=== PATIENT | female | born 1965 | race Two or more races ===

== ENCOUNTER 2020-09-13 20:41 | Emergency (ER) | payer OTHER ==
[~2020-09-13] VITALS: Ht 167.6 cm; Wt 70.3 kg
[2020-09-14] MEDS ORDERED: MORPHINE SULFATE INJECTION 2 MG/ML SYRG IM ONE
[2020-09-14] MEDS ORDERED: ONDANSETRON ODT 4 MG TAB PO ONE
[2020-09-14 01:10] VITALS: BP 141/87
== END 2020-09-14 01:50 | disposition home or self-care (01) ==
LOC: ER 20:41
DX: S52.532A Colles' fracture of left radius, initial encounter for closed fracture (principal); E78.00 Pure hypercholesterolemia, unspecified; W19.XXXA Unspecified fall, initial encounter; Y93.89 Activity, other specified; Y92.89 Other specified places as the place of occurrence of the external cause; Y99.8 Other external cause status
CPT/HCPCS: 29125; 73110; 73130; 96372; 99284; J2270; Q0162